=== PATIENT | male | born 1950 | race American Indian/Alaskan Native ===

== ENCOUNTER 2017-05-14 11:50 | Emergency (ER) | payer MEDICARE ==
[2017-05-14 11:50] VITALS: BMI 23.7
[2017-05-14 12:02] VITALS: RESP 16; TEMP 98.4; O2SAT 98
--- NOTE | 2017-05-14 12:34 | C.PDOC ---
History Of Present Illness 67 y/o male pmhx HTN presents to the ED with complaints of eye discharge 4 days ago with lightheadedness x4 days (worse the first 2 days, much improved the last 2). Pt denies fever, headache, chest pain, palpitations, back pain, SOB, numbness, weakness or any other complaints. Denies fall/trauma. Pt states he gets similar symptoms when "has an infection" of some type and gets better with antibiotics. Time Seen by Provider: 05/14/17 12:24 Chief Complaint (Nursing): Dizziness/Lightheaded History Per: Patient History/Exam Limitations: no limitations Onset/Duration Of Symptoms: Days Current Symptoms Are (Timing): Better Seizure Or Post-ictal Symptoms: None Fall Associated With With Symptoms: No Severity: Mild Recent travel outside of the [place]: No - Symptoms Of CVA Recent Head Trauma: No Past Medical History Reviewed: Historical Data, Nursing Documentation, Vital Signs Vital Signs: Last Vital Signs Temp 98.4 F 05/14/17 11:58 Pulse 54 L 05/14/17 11:58 Resp 16 05/14/17 11:58 BP 198/120 H 05/14/17 11:58 Pulse Ox 98 05/14/17 12:37 - Medical History PMH: HTN Family History: States: Unknown Family Hx - Social History Hx Tobacco Use: Yes Hx Alcohol Use: No Hx Substance Use: No - Immunization History Hx Tetanus Toxoid Vaccination: No Hx Influenza Vaccination: No Hx Pneumococcal Vaccination: No Review Of Systems Constitutional: Negative for: Fever, Chills Eyes: Positive for: Other (eye discharge) Cardiovascular: Positive for: Light Headedness. Negative for: Chest Pain, Palpitations Respiratory: Negative for: Shortness of Breath Musculoskeletal: Negative for: Back Pain Neurological: Negative for: Weakness, Numbness, Headache Physical Exam - Physical Exam Additional Physical Exam Comments: Constitutional: No acute distress. Head: Normocephalic. Atraumatic. Eyes: PERRL. No eye discharge or redness. ENT: Moist mucous membranes. Neck: Supple. Cardiovascular: Regular rate. No murmur. Radial pulse 2+ bilaterally. Chest: No tenderness. Respiratory: Clear to auscultation bilaterally. GI: Soft. Nontender. Nondistended. Back: No CVA tenderness. Musculoskeletal: No tenderness or swelling of extremities. Skin: No rash. Neurologic: Alert, no focal deficit. Motor 5/5 x4. Sensation to light touch equal bilaterally. No facial droop. ED Course And Treatment ECG: Interpreted By Me, Viewed By Me ECG Rhythm: Sinus Rhythm Interpretation Of ECG: Mild ST elevations, not concave. No change from previous 3 EKGs on record. Rate From EC (BPM) O2 Sat by Pulse Oximetry: 98 (room air) Pulse Ox Interpretation: Normal Medical Decision Making Medical Decision Making: Will treat with antibiotics, f/u PMD. Counseled patient on HTN management. He states his blood pressure has been this elevated for 20 years and he is on Lopressor. Instructed to return for any chest pain, vomiting, diaphoresis, back pain. Disposition - Disposition Disposition: HOME/ ROUTINE Disposition Time: 12:39 Condition: STABLE Prescriptions: Amoxicillin/Clavulanate [Augmentin 875 MG-125 MG] 1 tab PO BID #20 tab Instructions: Lightheadedness (ED) - Clinical Impression Clinical Impression: Lightheadedness, Eye discharge - Scribe Statement The provider has reviewed the documentation as recorded by the Santana Rosas Provider Attestation: All medical record entries made by the Santana were at my direction and personally dictated by me. I have reviewed the chart and agree that the record accurately reflects my personal performance of the history, physical exam, medical decision making, and the department course for this patient. I have also personally directed, reviewed, and agree with the discharge instructions and disposition.
--- NOTE | 2017-05-14 12:38 | C.PDOC ---
Time Seen by Provider: 05/14/17 12:24 Chief Complaint (Nursing): Dizziness/Lightheaded Past Medical History Vital Signs: Last Vital Signs Temp 98.4 F 05/14/17 11:58 Pulse 54 L 05/14/17 11:58 Resp 16 05/14/17 11:58 BP 198/120 H 05/14/17 11:58 Pulse Ox 98 05/14/17 11:58 - Medical History PMH: HTN Family History: States: Unknown Family Hx - Social History Hx Tobacco Use: Yes Hx Alcohol Use: No Hx Substance Use: No - Immunization History Hx Tetanus Toxoid Vaccination: No Hx Influenza Vaccination: No Hx Pneumococcal Vaccination: No ED Course And Treatment O2 Sat by Pulse Oximetry: 98
[2017-05-14] MEDS ORDERED: Amoxicillin-Clav 875-125 mg Tab PO ONE (12:56)
[2017-05-14] MEDS ORDERED: Amoxicillin-Clav 875-125 mg Tab PO STA (12:57)
[2017-05-14 12:59] VITALS: BP 170/102; PULSE 60
== END 2017-05-14 12:59 | disposition home or self-care (01) ==
LOC: C.ER 11:50
DX: R42 Dizziness and giddiness (principal); H57.8 Other specified disorders of eye and adnexa

== ENCOUNTER 2019-01-24 13:07 | Emergency (ER) | payer MEDICARE ==
[2019-01-24 13:07] VITALS: BMI 23.7
[2019-01-24 13:30] VITALS: TEMP 98.7
--- NOTE | 2019-01-24 15:01 | RAD ---
Date of service: 01/24/2019 PROCEDURE: Radiographs of the right tibia and fibula. HISTORY: rigt mid fibular pain COMPARISON: None available TECHNIQUE: Frontal and lateral views obtained. FINDINGS: BONES: No fracture identified. JOINT SPACES: No dislocation seen. Bony articulations appear maintained. OTHER FINDINGS: None. IMPRESSION: No fracture or dislocation identified.
--- NOTE | 2019-01-24 15:07 | C.PDOC ---
Time Seen by Provider: 01/24/19 13:30 Chief Complaint (Nursing): Lower Extremity Problem/Injury Past Medical History Vital Signs: Last Vital Signs Temp 98.7 F 01/24/19 13:17 Pulse 61 01/24/19 13:45 Resp 18 01/24/19 13:17 BP 169/99 H 01/24/19 13:45 Pulse Ox 100 01/24/19 13:17 - Medical History PMH: HTN Family History: States: Unknown Family Hx - Social History Hx Tobacco Use: Yes Hx Alcohol Use: No Hx Substance Use: No - Immunization History Hx Tetanus Toxoid Vaccination: No Hx Influenza Vaccination: No Hx Pneumococcal Vaccination: No ED Course And Treatment O2 Sat by Pulse Oximetry: 100 Disposition - Disposition
--- NOTE | 2019-01-24 15:07 | C.PDOC ---
History Of Present Illness 68 year old male presents to ED with complaint of right distal lateral leg pain. Patient was at the gym 2 weeks ago doing bar exercises above his ankles and behind his ankles. Patient states that it hurts when he walks. He states that the pain radiates to his right calf. He states he took Tylenol with no improvement. Patient denies numbness and weakness. <Phoebe Duarte - Last Filed: 01/24/19 18:44> History Per: Patient History/Exam Limitations: no limitations Onset/Duration Of Symptoms: Other (2 weeks) Current Symptoms Are (Timing): Still Present <Phoebe Duarte - Last Filed: 01/24/19 18:44> <Alla Barahona - Last Filed: 01/24/19 19:49> Time Seen by Provider: 01/24/19 13:30 Chief Complaint (Nursing): Lower Extremity Problem/Injury Past Medical History Reviewed: Historical Data, Nursing Documentation, Vital Signs Vital Signs: Last Vital Signs Temp 98.7 F 01/24/19 13:17 Pulse 61 01/24/19 13:45 Resp 18 01/24/19 13:17 BP 169/99 H 01/24/19 13:45 Pulse Ox 100 01/24/19 13:17 - Medical History PMH: HTN Surgical History: No Surg Hx Family History: States: Unknown Family Hx - Social History Hx Tobacco Use: Yes Hx Alcohol Use: No Hx Substance Use: No - Immunization History Hx Tetanus Toxoid Vaccination: No Hx Influenza Vaccination: No Hx Pneumococcal Vaccination: No <Phoebe Duarte - Last Filed: 01/24/19 18:44> Vital Signs: Last Vital Signs Temp 98.7 F 01/24/19 13:17 Pulse 54 L 01/24/19 18:22 Resp 16 01/24/19 18:22 BP 204/108 H 01/24/19 18:22 Pulse Ox 100 01/24/19 18:45 <Alla Barahona - Last Filed: 01/24/19 19:49> Review Of Systems Constitutional: Negative for: Fever, Chills, Weakness Cardiovascular: Negative for: Chest Pain Respiratory: Negative for: Shortness of Breath Musculoskeletal: Positive for: Leg Pain (right distal lateral leg pain and right calf pain ). Negative for: Back Pain Skin: Negative for: Rash Neurological: Negative for: Weakness, Numbness, Dizziness <GeraldRadhaPhoebe - Last Filed: 01/24/19 18:44> Physical Exam - Physical Exam Appears: Well, No Acute Distress Skin: Normal Color, Warm, Dry Head: Atraumatic, Normacephalic Neck: Normal ROM, Supple Chest: Symmetrical, No Deformity Respiratory: No Accessory Muscle Use Extremity: Tenderness (right distal lower leg), Calf Tenderness (right posterior) Pulses: Left Femoral: Normal, Right Femoral: Normal, Left Dorsalis Pedis: Normal, Right Dorsalis Pedis: Normal Neurological/Psych: Oriented x3, Normal Speech, Normal Cognition, Normal Sensation <GeraldPhoebe - Last Filed: 01/24/19 18:44> ED Course And Treatment - Laboratory Results Result Diagrams: 01/24/19 16:42 01/24/19 16:42 O2 Sat by Pulse Oximetry: 100 (in RA) - Other Rad Right tibia fibula X-ray X-Ray: Interpreted by Me, Viewed By Me, Read By Radiologist Interpretation: IMPRESSION: No fracture or dislocation identified. ankle X-Ray: Viewed By Me, Read By Radiologist Interpretation: BONES: Previously described irregularity of the distal fibula medial cortex represents overlap of periostitis/ossification of the syndesmosis from the lateral cortex of the distal tibia. No acute fracture identified. <Phoebe Duarte - Last Filed: 01/24/19 18:44> - Laboratory Results Result Diagrams: 01/24/19 16:42 01/24/19 16:42 Lab Results: Total Bilirubin 0.7 mg/dL (0.2-1.3) 01/24/19 16:42 AST 36 U/L (17-59) 01/24/19 16:42 ALT 33 U/L (21-72) 01/24/19 16:42 Alkaline Phosphatase 115 U/L (38-126) 01/24/19 16:42 Total Protein 8.0 g/dL (6.3-8.3) 01/24/19 16:42 Albumin 4.9 g/dL (3.5-5.0) 01/24/19 16:42 Globulin 3.2 gm/dL (2.2-3.9) 01/24/19 16:42 Albumin/Globulin Ratio 1.5 (1.0-2.1) 01/24/19 16:42 <Alla Barahona - Last Filed: 01/24/19 19:49> Medical Decision Making Medical Decision Making: Impression: 68 year old male complaining of distal lateral lower leg pain Plan: Patient given Motrin PO. Right ankle X-ray and Right tibia fibula x-ray ordered for patient. Venous duplex scan of the lower extremities ordered for patient. pt about to be discharged, now with bp in 230s/110. pt reports hx htn, takes lo pressor and minoxidil as well as 2 other medications in evening time, sts last taken thur night. denies cp, sob, headache, dizziness. 1830 pt has normal labs, given 25 mg po hydralazine (no iv form available) due to bradycardia. pt now with bp 204/108. pt declines to stay until pressure decreased. I explained to patient the risk of stroke, mi, permanent disability, and he chooses to leave against medical advice and understands and accepts all the risks and consequences. GREG Bianchi present for conversation. pt made aware he may return to ED at any time, <Phoebe Duarte - Last Filed: 01/24/19 18:44> Disposition Counseled Patient/Family Regarding: Studies Performed, Diagnosis, Need For Followup, Rx Given - Disposition Disposition Time: 18:45 <Phoebe Duarte - Last Filed: 01/24/19 18:44> <Alla Barahona - Last Filed: 01/24/19 19:49> - Disposition Referrals: Leon Abdi III, MD [Staff Provider] - [facility] [Outside] Disposition: AGAINST MEDICAL ADVICE Condition: SERIOUS Additional Instructions: Wear michelle bandage to right lower leg while awake and take Tylenol for pain. Follow up with Dr Abdi from orthopedics if pain persists. Take all blood pressure medications as prescribed. Follow up [facility] or with your doctor as soon as possible. Return to ER at any time for further evaluation and treatment of blood pressure or for mnay other concerns. Prescriptions: Acetaminophen [Tylenol 325mg tab] 650 mg PO Q6 #30 tab Instructions: Muscle and Bone Pain (DC), High Blood Pressure Emergencies Forms: [employer] (Sinhala), General Discharge Instructions - Clinical Impression Clinical Impression: Right leg pain, Hypertension, Left against medical advice - PA / MARKETING TRAINEE / Resident Statement MD/DO has reviewed & agrees with the documentation as recorded. (Yesica Cazares) - Scribe Statement The provider has reviewed the documentation as recorded by the Scribe (Yesica Cazares) All medical record entries made by the Scribe were at my direction and personally dictated by me. I have reviewed the chart and agree that the record accurately reflects my personal performance of the history, physical exam, medical decision making, and the department course for this patient. I have also personally directed, reviewed, and agree with the discharge instructions and disposition. <Phoebe Duarte - Last Filed: 01/24/19 18:44>
--- NOTE | 2019-01-24 15:49 | RAD ---
Date of service: 01/24/2019 PROCEDURE: Right Ankle Radiographs. HISTORY: distal leg pain COMPARISON: Right tib-fib x-rays performed earlier same day FINDINGS: BONES: Previously described irregularity of the distal fibula medial cortex represents overlap of periostitis/ossification of the syndesmosis from the lateral cortex of the distal tibia. No acute fracture identified. JOINTS: No dislocation seen. Ankle mortise maintained. Talar dome intact SOFT TISSUES: Unremarkable OTHER FINDINGS: None. IMPRESSION: No fracture or dislocation identified. Additional findings as above.
[2019-01-24 16:48] LABS: BASO # 0.1 K/uL (0.0-0.2); BASO % 1.3 % (0.0-2.0); EOS # 0.1 K/uL (0.0-0.7); EOS % 2.1 % (0.0-4.0); HEMOGLOBIN 13.9 g/dL (12.0-18.0); LYMPH # 0.8 K/uL (1.0-4.3); LYMPH % 19.5 % (20.0-40.0); MEAN CELL VOLUME 86.9 fL (80.0-94.0); MEAN CORPUSCULAR HGB CONC 32.2 g/dL (33.0-37.0); MEAN PLATELET VOLUME 8.4 fL (7.2-11.7); MONO # 0.6 K/uL (0.0-0.8); MONO % 15.8 % (0.0-10.0); NEUT # 2.5 K/uL (1.8-7.0); NEUT % 61.3 % (50.0-75.0); NRBC % 0.1 % (0.0-2.0); RBC 4.97 Mil/uL (4.40-5.90); RED CELL DISTRIBUTION WIDTH 13.3 % (11.5-14.5)
[2019-01-24 17:23] LABS: ALB/GLOB RATIO 1.5 (1.0-2.1); ALBUMIN 4.9 g/dL (3.5-5.0); ALT/SGPT 33 U/L (21-72); AST/SGOT 36 U/L (17-59); BLOOD UREA NITROGEN 14 mg/dL (9-20); CALCIUM 9.7 mg/dl (8.6-10.4); GFR NON-AFRICAN AMERICAN > 60
[2019-01-24 18:22] VITALS: RESP 16
[2019-01-24 18:23] VITALS: BP 204/108; PULSE 54
[2019-01-24 18:41] VITALS: O2SAT 100
--- NOTE | 2019-01-25 11:04 | VASCLAB ---
Date of service: 01/24/2019 PROCEDURE: Right Lower Extremity Venous Duplex Exam. HISTORY: lateral calf pain PRIORS: 02/04/2015 TECHNIQUE: Right common femoral, femoral, popliteal and posterior tibial, peroneal and great saphenous veins were evaluated. Flow was assessed with color Doppler, compressibility, assessment of phasic flow and augmentation response. Report prepared by YSABEL Dobbs, RVT FINDINGS: RIGHT: 1. Common Femoral Vein: 1.1. Compressibility - Fully compressible: Thrombus - None: Flow - Phasic: Augmentation -Normal: Reflux - None. 2. Femoral Vein: 2.1. Compressibility - Fully compressible: Thrombus - None: Flow - Phasic: Augmentation -Normal: Reflux - None. 3. Popliteal Vein: 3.1. Compressibility - Fully compressible: Thrombus - None: Flow - Phasic: Augmentation -Normal: Reflux - None. 4. Posterior Tibial Vein: 4.1. Compressibility - Fully compressible: Thrombus - None: Flow - Phasic: Augmentation -Normal: Reflux - None. 5. Peroneal Vein: 5.1. Compressibility - Fully compressible: Thrombus - None: Flow - Phasic: Augmentation -Normal: Reflux - None. 6. Great Saphenous Vein: 6.1. Compressibility - Fully compressible: Thrombus -None: Flow - Phasic: Augmentation - Normal: Reflux - None. OTHER FINDINGS: IMPRESSION: No evidence of deep or superficial vein thrombosis of the right lower extremity with excellent venous flow. Normal valve function noted of the right side. Normal venous flow noted in the left common femoral vein.
--- NOTE | 2019-01-27 12:49 | CARD ---
APPROVED REPORT Date of service: 01/24/2019 EKG Measurement Heart [id number] <Conclusion> Sinus bradycardia with occasional premature ventricular complexes ST elevation, consider early repolarization, pericarditis, or injury Abnormal ECG
== END 2019-01-24 19:00 | disposition left against medical advice (07) ==
LOC: C.ER 13:07
DX: M79.604 Pain in right leg (principal); I10 Essential (primary) hypertension; Z72.0 Tobacco use